=== PATIENT | male | born 1990 | race Caucasian/White ===

== ENCOUNTER 2023-10-23 06:23 | Day surgery (SDC) | payer OTHER, SELFPAY ==
[2023-10-23] VITALS (9 sets, daily range): BP systolic 122–152; BP diastolic 63–86; BMI 26.4
[2023-10-23] MEDS: TYLENOL 1000 MG PO (12:12)
[2023-10-23] MEDS: NORMOSOL-R 1000 IV (12:17)
== END 2023-10-23 16:25 | disposition home or self-care (01) ==
LOC: SDS 06:23
PROVIDERS: ATTENDING PHYSICIAN Otolaryngology; FAMILY PHYSICIAN Family Medicine
DX: J32.4 Chronic pansinusitis (principal); J34.2 Deviated nasal septum; J33.9 Nasal polyp, unspecified
CPT/HCPCS: 30520; 88304; 88311